=== PATIENT | female | born 1995 | race Hispanic/Latino ===

== ENCOUNTER 2024-06-21 13:08 | Emergency (ER) | payer OTHER ==
[~2024-06-21] VITALS: Ht 154.9 cm; Wt 105.2 kg
[2024-06-21 13:24] VITALS: TEMP 98.5
[2024-06-21 15:30] VITALS: PULSE 85; RESP 16; O2SAT 100
== END 2024-06-21 15:44 | disposition home or self-care (01) ==
LOC: ER 13:19
DX: Z32.01 Encounter for pregnancy test, result positive (principal)
CPT/HCPCS: 76801; 99283